=== PATIENT | female | born 1950 | race Caucasian/White ===

== ENCOUNTER 2018-05-09 07:00 | Day surgery (SDC) | payer BC ==
[~2018-05-09] VITALS: Ht 160 cm; Wt 63.5 kg
[2018-05-09] MEDS ORDERED: CLINDAMYCIN 600 mg/50mL D5W 50 ML IV ONE (08:00)
[2018-05-09 09:13] LABS: BASOPHILS % (AUTO) 0.7 % (0.0-2.0); EOSINOPHILS # (AUTO) 0.3 K/uL (0.0-0.4); EOSINOPHILS % (AUTO) 4.1 % (0.0-4.0); HEMATOCRIT 36.4 % (36-48); HEMOGLOBIN 12.7 g/dL (12.0-16.0); LYMPHOCYTES # (AUTO) 1.5 K/uL (1.0-5.5); LYMPHOCYTES % (AUTO) 23.5 % (20.5-51.5); MEAN CORPUSCULAR HEMOGLOBIN 34 pg (27-31); MEAN CORPUSCULAR HGB CONC 35 % (32-36); MEAN CORPUSCULAR VOLUME 97 fL (79.0-98.0); MONOCYTES # (AUTO) 0.6 K/uL (0.0-1.0); MONOCYTES % (AUTO) 9.2 % (1.7-9.3); NEUTROPHILS # (AUTO) 4.1 K/uL (1.8-7.7); NEUTROPHILS % (AUTO) 62.5 % (40.0-70.0); PLATELET COUNT (AUTO) 352 K/uL (130-430); RED BLOOD CELL COUNT(AUTO) 3.77 MIL/uL (4.2-6.2); RED CELL DISTRIBUTION WIDTH 11.7 % (9.0-15.0); WHITE BLOOD COUNT (AUTO) 6.5 K/uL (4.8-10.8)
[2018-05-09] MEDS ORDERED: ROCURONIUM BROMIDE 10 MG/ML (ZEMURON) IV ONE (11:05)
[2018-05-09] MEDS ORDERED: fentaNYL CITRATE 250 MCG/5 ML AMP IV ONE (11:05)
[2018-05-09] MEDS ORDERED: ONDANSETRON HCL 4 MG/2 ML VIAL IVP ONE (11:05)
[2018-05-09] MEDS ORDERED: DEXAMETHASONE SOD PHOSPHATE 4 MG/ML VIAL IVP ONE (11:05)
[2018-05-09] MEDS ORDERED: SEVOFLURANE 15 MIN GAS INH ONE (11:05)
[2018-05-09] MEDS ORDERED: PROPOFOL 200MG/ 20ML VIAL (DIPRIVAN) IV ONE (11:05)
[2018-05-09] MEDS ORDERED: KETOROLAC TROMETHAMINE 30 MG VIAL IVP ONE (11:05)
[2018-05-09] MEDS ORDERED: MIDAZOLAM HCL 5 MG/5 ML VIAL IVP ONE (11:05)
[2018-05-09] MEDS ORDERED: LR 1,000 ML IV.SOLN IV ONE (11:05)
[2018-05-09] MEDS ORDERED: BUPIVACAINE /PF 0.25% 30 ML VIAL INJ ONE (11:05)
[2018-05-09] MEDS ORDERED: LR 1,000 ML IV SCH (12:14)
[2018-05-09] MEDS ORDERED: HYDROmorphone 2 MG/ML VIAL IVP PRN ×2 (12:15)
[2018-05-09] MEDS ORDERED: HYDROmorphone 1 MG INJ. 1 MG/ML AMPUL IVP PRN ×2 (12:15→12:30)
[2018-05-09] MEDS ORDERED: MEPERIDINE HCL/PF 25 MG/ML DISP.SYRIN IVP PRN (12:15)
[2018-05-09] MEDS ORDERED: D5/0.45 NS 1,000 ML IV SCH (12:27)
[2018-05-09] MEDS ORDERED: HYDROcodone/ACETAMIN 5-325 MG TAB (NORCO/ VICODIN) PO PRN ×2 (12:30)
[2018-05-09 13:47] VITALS: BP_SYST 147
== END 2018-05-09 14:30 | disposition home or self-care (01) ==
LOC: SDS 07:00 → SMU 07:00 → EDSTATUS 08:00 → SDS 14:30
PROVIDERS: ATTEND Colon & Rectal Surgery
DX: D05.11 Intraductal carcinoma in situ of right breast (principal); I10 Essential (primary) hypertension; Z88.8 Allergy status to other drugs, medicaments and biological substances; E78.5 Hyperlipidemia, unspecified; Z98.890 Other specified postprocedural states; Z82.49 Family history of ischemic heart disease and other diseases of the circulatory system; Z80.3 Family history of malignant neoplasm of breast; Z79.899 Other long term (current) drug therapy
CPT/HCPCS: 19081; 19301; 36415; 85025; 88305; 88307; J1100; J1885; J2250; J2405; J2704; J3010; J3490 ×2; J7120; 76098-TC

== ENCOUNTER 2024-01-26 09:15 | Emergency (ER) | payer BC, OTHER ==
[~2024-01-26] VITALS: Ht 160 cm; Wt 64.9 kg
[2024-01-26 09:34] VITALS: BP_SYST 146; PULSE 84; RESP 18; TEMP 98.3; O2SAT 96
[2024-01-26 10:27] LABS: STREPTOCOCCUS A SCREEN (RAPID) NEGATIVE (NEGATIVE)
[2024-01-26] MEDS: guaiFENesin/DEXTROMETHORPHAN 10 ML UDC PO ONE (10:57)
[2024-01-26 11:08] LABS: INFLUENZA TYPE A Negative (NEGATIVE); INFLUENZA TYPE B NEGATIVE (NEGATIVE)
[2024-01-26] MEDS ORDERED: IBUP-1969 PO (11:28)
[2024-01-26] MEDS ORDERED: GUAI5SYR PO (11:28)
[2024-01-26 11:35] VITALS: BP_SYST 143; PULSE 82; RESP 18; TEMP 98.1; O2SAT 96
== END 2024-01-26 11:35 | disposition home or self-care (01) ==
LOC: SED 09:15
DX: J06.9 Acute upper respiratory infection, unspecified (principal); Z20.822 Contact with and (suspected) exposure to COVID-19; R07.0 Pain in throat; Z88.0 Allergy status to penicillin; Z88.5 Allergy status to narcotic agent; Z79.899 Other long term (current) drug therapy
CPT/HCPCS: 36415; 71045; 86403; 87081; 93005; 99283

== ENCOUNTER 2024-02-02 10:37 | Emergency (ER) | payer OTHER ==
[~2024-02-02] VITALS: Ht 160 cm; Wt 64.9 kg
[2024-02-02 10:37] VITALS: BP_SYST 144; PULSE 93; RESP 19; TEMP 98.3; O2SAT 94
[~2024-02-02 10:37] MED LIST: GUAI5SYR PO; IBUP-1969 PO
[2024-02-02] MEDS ORDERED: PRED50TA PO (12:31)
[2024-02-02] MEDS ORDERED: ZIT250 PO (12:31)
[2024-02-02 12:43] VITALS: BP_SYST 144; PULSE 90; RESP 17; TEMP 98; O2SAT 93
== END 2024-02-02 12:42 | disposition home or self-care (01) ==
LOC: SED 10:37
DX: H66.92 Otitis media, unspecified, left ear (principal); J04.0 Acute laryngitis; Z88.0 Allergy status to penicillin; Z88.5 Allergy status to narcotic agent; Z79.899 Other long term (current) drug therapy; Z79.2 Long term (current) use of antibiotics
CPT/HCPCS: 71045; 99283